=== PATIENT | female | born 1995 | race Caucasian/White ===

== ENCOUNTER 2024-10-12 23:27 | Emergency (ER) | payer BC, SELFPAY ==
[2024-10-12 23:28] VITALS: BP 110/70
[2024-10-13 00:36] VITALS: BMI 25.1
[2024-10-13 00:42] VITALS: BP 104/61
--- NOTE | 2024-10-13 01:29 | ED.GENMED ---
History of Present Illness
General
Chief Complaint: Suicidal Ideation
Time Seen by Provider: 10/13/24 00:24
History of Present Illness
History of Present Illness:
29-year-old female with history of anxiety and depression presenting to the emergency department for intentional overdose. Patient reports prior to arrival she took 4 of her Klonopin and hydroxyzine as well as 2 beers. She reports that she has
been very stressed out and was doing so to 'numb 'her symptoms. She presently denies suicidal or homicidal ideations. She is in an outpatient partial program. 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
exam. She presently denies chest pain, difficulty breathing, abdominal pain. Denies any vomiting after the incident. Denies ever trying to hurt herself in the past. Denies additional medical complaints.
Phy Exam
Physical Exam
Physical Exam:
General: Well-appearing, no clinical signs of dehydration, nontoxic and in no acute distress
HEENT: protecting airway
Neck: appears supple
CV: Normal heart rate, regular rhythm, no evidence of cyanosis
Resp: No accessory muscle use, no increased work of breathing, lungs clear to auscultation bilaterally
Abd: No distention
Extremities: No deformities, no swelling
Neuro: alert, no focal neurologic deficit
: deferred
Rectal: deferred
Psych: Normal affect
Skin: Intact
Course
Orders/Labs/Results
Orders:
Orders
10/12/24 23:31
1:1 Observation - Suicide/ Violent Behavior As Directed
Crisis Consult Urgent
Reason for Consult: SUICIDAL
10/13/24 00:59
Electrocardiogram (*1) Urgent
Reason for Study: QTc Monitoring
EKG- Treatment ONCE
Vital Signs
Initial and Last Documented VS:
Initial Vital Signs
Temp Pulse Resp BP Pulse Ox
97.8 F 76 20 110/70 100
10/12/24 23:28 10/12/24 23:28 10/12/24 23:28 10/12/24 23:28 10/12/24 23:28
Last Documented Vital Signs
Temp Pulse Resp BP Pulse Ox
97.8 F 76 20 104/61 99
10/12/24 23:28 10/12/24 23:28 10/12/24 23:28 10/13/24 00:42 10/13/24 01:32
MDM/Problems Addressed
MDM/Problems Addressed:
29-year-old female with history of depression and anxiety presenting after intentional overdose of some of her medications. Vital signs on arrival are normal.
On exam patient is resting comfortably, no acute distress or discomfort. Patient notes she took 4 of her Klonopin and 4 of her hydroxyzine. From a medical standpoint. Without present concern for acute toxicity from her ingestion. EKG obtained,
normal intervals, no acute process. Patient presently without any medical complaints, unremarkable exam. However, from a mental health perspective concerning behavior. Will consult with crisis.
02:00 - discussion with crisis, note the patient is already in a partial program and currently denying any suicidal or homicidal ideations. Patient took the medication as a coping mechanism to her stress, expresses that she does not want to harm
herself or does not wish to . Patient's father is at bedside and notes that he will lock up patient's medications, safety plan is in place. He does feel comfortable with patient going home and patient herself feels comfortable going home. At
this time do not feel the patient is a threat to herself or others. Feel safe for discharge with continued outpatient psychiatric follow-up. Strict return precautions communicated to patient verbalized understanding
*Pulse Oximetry
SaO2: 99
Oxygen Mode of Delivery: Room air
Patient hypoxic: no
*EKG
Interpreted by ED Provider?: Yes
EKG Intrepretation Date: 10/13/24
EKG Intrepretation Time: 02:07
Interpretation: normal
Heart Rate: 54
Rate: bradycardiac
Rhythm: sinus
Dexter: normal axis
Interval: normal interval
QRS Pattern: normal QRS
Ischemia: no ischemia
*Critical Care Note
Total Time (30-74mins, 75-104mins- exclusive of procedures): Not Applicable
ED Attending Note
-
Portions of this chart may have been created with voice recognition software.� Occasional wrong word or��sound alike� substitutions may have occurred due to the inherent limitations of voice recognition software.
Discharge Plan
Departure
Patient Disposition: Home (Routine Discharge)
Date of Disposition: 10/13/24
Time of Disposition: 02:05
Patient with high blood pressure during this ER visit?: No
Condition: Good
Discharge Problem:
Depression, Intentional overdose
Instructions: Depression, Adult (DC)
Referrals:
UNKNOWN - PT DOES,NOT KNOW [Family Provider]
Activity Restrictions/Additional Instructions:
You were seen in the emergency department for intentional overdose of your medications
You were seen by the crisis team and a safety plan was put in place. Please continue to follow-up with your therapist and psychiatrist.
Please follow-up closely with your primary care physician.
Return to the emergency department for any worsening of your symptoms including any thoughts of wanting to hurt yourself or others, or any development of chest pain, difficulty breathing, abdominal pain with persistent vomiting and inability to
tolerate food or liquid by mouth (concern for dehydration), weakness, headache or confusion, fever greater than 100.4, or any additional symptoms that are concerning to you.
Thank you for choosing [facility].
Interventions
Interventions:
*Risk Screen - Suicide Last Done: 10/12/24 23:28
*General Assessment Last Done: 10/13/24 00:36
*Neglect/Abuse Screening Last Done: 10/12/24 23:28
*ED- Fall Risk Assessment Last Done: 10/13/24 00:36
*ED COVID-19 Vaccine History Last Done: 10/13/24 00:36
ED- Cardiac Assessment Last Done: 10/13/24 00:36
ED- Neurological Assessment Last Done: 10/13/24 00:36
ED-Psychological Assessment Last Done: 10/13/24 00:36
ED- Pulmonary Assessment Last Done: 10/13/24 00:36
Discharge Date and Time
Print Language: BULGARIAN
== END 2024-10-13 02:14 | disposition home or self-care (01) ==
LOC: EMR 23:27
PROVIDERS: EMERGENCY PHYSICIAN Student in an Organized Health Care Education/Training Program
DX: R45.851 Suicidal ideations (principal); F32.A Depression, unspecified; T42.4X2A Poisoning by benzodiazepines, intentional self-harm, initial encounter; T43.592A Poisoning by other antipsychotics and neuroleptics, intentional self-harm, initial encounter; F10.90 Alcohol use, unspecified, uncomplicated; F41.9 Anxiety disorder, unspecified
CPT/HCPCS: 99285; 93005